=== PATIENT | female | born 1995 | race African-American/Black ===

== ENCOUNTER 2024-09-17 23:25 | Emergency (ER) | payer MEDICAID ==
[~2024-09-17] VITALS: Ht 167.6 cm; Wt 73.0 kg
[2024-09-17 23:27] VITALS: O2SAT 98
[2024-09-17 23:29] VITALS: TEMP 36.7; O2SAT 98
[2024-09-17 23:45] VITALS: BP 144/88; PULSE 116; RESP 18
[2024-09-17] MEDS: KETOROLAC 30MG/ML VIAL IM ONE (23:45)
[2024-09-18] MEDS ORDERED: GABA-529 MT (00:28)
[2024-09-18] MEDS ORDERED: KETO10TA2 MT (00:28)
[2024-09-18 00:34] VITALS: TEMP 98.1
[2024-09-18] MEDS: ACETAMINOPHEN 500MG TABLET PO ONE (00:34)
== END 2024-09-18 00:35 | disposition home or self-care (01) ==
LOC: ER 23:25
DX: M54.10 Radiculopathy, site unspecified (principal); M06.9 Rheumatoid arthritis, unspecified; M79.7 Fibromyalgia; Z79.899 Other long term (current) drug therapy; Z91.040 Latex allergy status; Z88.0 Allergy status to penicillin
CPT/HCPCS: 99283; 96372; 81025; J1885; A4565